=== PATIENT | male | born 1990 | race Caucasian/White ===

== ENCOUNTER → 2016-08-23 08:26 | Outpatient (CLI) | payer BC | END | disposition home or self-care (01) | LOC: D.CT 07-12 08:00 | DX: C62.11 Malignant neoplasm of descended right testis (principal) ==

== ENCOUNTER → 2016-09-01 08:23 | Outpatient (CLI) | payer BC | END | disposition home or self-care (01) | LOC: D.CT 08:23 | DX: I74.5 Embolism and thrombosis of iliac artery (principal) ==

== ENCOUNTER 2018-08-14 10:01 | Emergency (ER) | payer SELFPAY ==
[~2018-08-14] VITALS: Ht 195.6 cm; Wt 100.0 kg
[2018-08-14 10:17] VITALS: Ht 195.6 cm; Wt 100.0 kg
[2018-08-14 11:09] LABS: BASOPHILS 0.2 % (0-2); EOSINOPHILS 0.7 % (0-7); HEMATOCRIT 52.8 % (42.0-54.0); HEMOGLOBIN 17.6 g/dL (13.5-17.5); IMMATURE GRANULOCYTES 0.3 % (0-5); MCH 27.9 pg (26.0-34.0); MCHC 33.3 g/dL (31.0-37.0); MCV 83.8 fL (80.0-100.0); MEAN PLATELET VOLUME 9.7 fL (7.4-10.4); MONOCYTES 8.2 % (2-11); NEUTROPHILS 78.6 % (40-80); PLATELET COUNT 379 10x3/uL (130-400); RDW 14.2 % (11.5-14.5); WBC 17.6 10x3/uL (4.8-10.8)
[2018-08-14 11:18] LABS: INR 1.15 (0.85-1.17); PROTIME 14.2 SECONDS (11.6-15.0)
[2018-08-14 11:21] LABS: ALBUMIN 4.1 g/dL (3.4-5.0); ANION GAP 19.7 mmol/L (8-16); BILIRUBIN - TOTAL 0.77 mg/dL (0.2-1.3); C-REACTIVE PROTEIN 5.9 mg/dL (0.0-0.9); CALCIUM 9.4 mg/dL (8.5-10.1); CREATININE - SERUM 1.3 mg/dL (0.6-1.3); POTASSIUM - SERUM 3.7 mmol/L (3.5-5.1); PROTEIN - SERUM 8.3 g/dL (6.4-8.2)
[2018-08-14 16:45] VITALS: BP 124/86
== END 2018-08-14 16:20 | disposition home or self-care (01) ==
LOC: D.ER 10:01
PROVIDERS: Family Medicine
DX: K56.609 Unspecified intestinal obstruction, unspecified as to partial versus complete obstruction (principal); D72.829 Elevated white blood cell count, unspecified; K43.9 Ventral hernia without obstruction or gangrene

== ENCOUNTER 2018-10-07 17:25 | Emergency (ER) | payer OTHER ==
[~2018-10-07] VITALS: Ht 195.6 cm; Wt 140.7 kg
[2018-10-07 17:52] VITALS: Ht 195.6 cm; Wt 140.7 kg
[2018-10-07 18:27] LABS: BASOPHILS 0.3 % (0-2); EOSINOPHILS 1.1 % (0-7); HEMATOCRIT 47.6 % (42.0-54.0); HEMOGLOBIN 15.6 g/dL (13.5-17.5); IMMATURE GRANULOCYTES 0.2 % (0-5); LYMPHOCYTES 15.1 % (15-50); MCH 27.5 pg (26.0-34.0); MCHC 32.8 g/dL (31.0-37.0); MCV 83.8 fL (80.0-100.0); MEAN PLATELET VOLUME 9.5 fL (7.4-10.4); MONOCYTES 5.8 % (2-11); NEUTROPHILS 77.5 % (40-80); PLATELET COUNT 317 10x3/uL (130-400); RBC 5.68 10x6/uL (4.20-6.10); RDW 14.3 % (11.5-14.5); WBC 10.5 10x3/uL (4.8-10.8)
[2018-10-07 18:33] LABS: APPEARANCE CLEAR (CLEAR); BILIRUBIN NEGATIVE (NEGATIVE); COLOR YELLOW (YELLOW); GLUCOSE NEGATIVE (NEGATIVE); KETONE NEGATIVE (NEGATIVE); NITRITE NEGATIVE (NEGATIVE); PROTEIN NEGATIVE (NEGATIVE); UROBILINOGEN NORMAL (NORMAL)
[2018-10-07 18:43] LABS: ALBUMIN 4.4 g/dL (3.4-5.0); ALKALINE PHOSPHATASE 139 U/L (46-116); ALT (SGPT) 124 U/L (10-68); BILIRUBIN - TOTAL 0.35 mg/dL (0.2-1.3); CALC OSMOLALITY 282 mosm/kg (275-300); CALCIUM 9.3 mg/dL (8.5-10.1); CARBON DIOXIDE 28.2 mmol/L (21.0-32.0); CHLORIDE - SERUM 106 mmol/L (98-107); CREATININE - SERUM 1.2 mg/dL (0.6-1.3); GLUCOSE 94 mg/dL (74-106); POTASSIUM - SERUM 4.3 mmol/L (3.5-5.1); PROTEIN - SERUM 7.5 g/dL (6.4-8.2); SODIUM 143 mmol/L (136-145); UREA NITROGEN 8 mg/dL (7-18); eGFR NON AFRICAN AMERICAN 77 mL/min (90-120)
[2018-10-07 18:45] LABS: AMYLASE - SERUM 41 U/L (25-115); LIPASE 83 U/L (73-393); TROPONIN-I < 0.017 ng/mL (0.000-0.060)
[2018-10-07] MEDS ORDERED: PHENERGAN25 M1 PO (21:09)
[2018-10-07 21:23] VITALS: BP 102/69
== END 2018-10-07 21:23 | disposition home or self-care (01) ==
LOC: D.ER 17:25
PROVIDERS: Family Medicine
DX: K45.8 Other specified abdominal hernia without obstruction or gangrene (principal); Z85.47 Personal history of malignant neoplasm of testis

== ENCOUNTER 2018-10-19 08:34 | Day surgery (SDC) | payer OTHER ==
[~2018-10-19] VITALS: Ht 195.6 cm; Wt 143.2 kg
[~2018-10-19 08:34] MED LIST: PHENERGAN25 M1 PO
[2018-10-19 08:49] LABS: BASOPHILS 0.3 % (0-2); EOSINOPHILS 2.5 % (0-7); HEMATOCRIT 48.1 % (42.0-54.0); HEMOGLOBIN 15.8 g/dL (13.5-17.5); IMMATURE GRANULOCYTES 0.4 % (0-5); LYMPHOCYTES 22.4 % (15-50); MCH 27.3 pg (26.0-34.0); MCHC 32.8 g/dL (31.0-37.0); MCV 83.1 fL (80.0-100.0); MEAN PLATELET VOLUME 9.3 fL (7.4-10.4); MONOCYTES 6.4 % (2-11); PLATELET COUNT 295 10x3/uL (130-400); RBC 5.79 10x6/uL (4.20-6.10); RDW 14.2 % (11.5-14.5)
[2018-10-19 08:59] LABS: CALC OSMOLALITY 277 mosm/kg (275-300); CALCIUM 9.1 mg/dL (8.5-10.1); CHLORIDE - SERUM 103 mmol/L (98-107); CREATININE - SERUM 1.2 mg/dL (0.6-1.3); GLUCOSE 101 mg/dL (74-106); POTASSIUM - SERUM 4.4 mmol/L (3.5-5.1); SODIUM 140 mmol/L (136-145); UREA NITROGEN 11 mg/dL (7-18); eGFR NON AFRICAN AMERICAN 77 mL/min (90-120)
[2018-10-19 09:00] LABS: APTT 31.1 SECONDS (22.8-39.4); INR 1.08 (0.85-1.17); PROTIME 13.5 SECONDS (11.6-15.0)
[2018-10-19 09:16] VITALS: BP 119/78; BMI 37.4
--- NOTE | 2018-10-19 13:58 | NUR ---
SCOPE PATCH BEHIND RT EAR ON ADMIT
[2018-10-19 14:55] VITALS: BP 140/83
[2018-10-19 15:30] VITALS: BP 127/72; Ht 195.6 cm; Wt 143.2 kg
--- NOTE | 2018-10-19 17:57 | NUR ---
SCD'S ON PATIENT. MACHINE TURNED ON AND FUNCTIONING. PATIENT EATING ONLY JELL[employer]IN[employer]. REQUESTS A FAN BECAUSE IS "BURNING UP". TURNED FAN HIGHER AND REMOVED SEVERAL BLANKETS FROM RECOVERY.
[2018-10-19 20:20] VITALS: BP 117/83
[2018-10-20 00:31] VITALS: BP 117/69
[2018-10-20 04:17] VITALS: BP 117/56
[2018-10-20 04:35] LABS: BASOPHILS 0.1 % (0-2); EOSINOPHILS 0.1 % (0-7); HEMATOCRIT 42.6 % (42.0-54.0); HEMOGLOBIN 13.7 g/dL (13.5-17.5); IMMATURE GRANULOCYTES 0.3 % (0-5); LYMPHOCYTES 9.7 % (15-50); MCH 26.8 pg (26.0-34.0); MCHC 32.2 g/dL (31.0-37.0); MCV 83.4 fL (80.0-100.0); MEAN PLATELET VOLUME 9.3 fL (7.4-10.4); MONOCYTES 8.8 % (2-11); PLATELET COUNT 303 10x3/uL (130-400); RBC 5.11 10x6/uL (4.20-6.10)
[2018-10-20 04:54] LABS: WBC 15.8 10x3/uL (4.8-10.8)
[2018-10-20 05:00] LABS: CALC OSMOLALITY 275 mosm/kg (275-300); CALCIUM 7.8 mg/dL (8.5-10.1); CARBON DIOXIDE 24.3 mmol/L (21.0-32.0); CHLORIDE - SERUM 104 mmol/L (98-107); GLUCOSE 113 mg/dL (74-106); POTASSIUM - SERUM 4.1 mmol/L (3.5-5.1); SODIUM 138 mmol/L (136-145); UREA NITROGEN 10 mg/dL (7-18); eGFR NON AFRICAN AMERICAN > 90 mL/min (90-120)
[2018-10-20] MEDS ORDERED: CYCLOBENZAPRINE10 MG PO (09:02)
[2018-10-20] MEDS ORDERED: HYDROCODON-ACE1 EA10 PO (09:02)
[2018-10-20 09:38] VITALS: BP 109/61
--- NOTE | 2018-10-20 11:12 | OP ---
PATIENT NAME: PATRICIA FUNEZ MEDICAL RECORD: [id number] :90 LOCATION:[facility] ADMISSION DATE: SURGEON: EMMANUEL HYLTON MD DATE OF OPERATION: 10/19/2018 PREOPERATIVE DIAGNOSES: 1. Ventral incisional hernia. 2. Peritoneal adhesions. 3. Tobacco dependence syndrome. 4. Morbid obesity. POSTOPERATIVE DIAGNOSES: 1. Ventral incisional hernia. 2. Peritoneal adhesions. 3. Tobacco dependence syndrome. 4. Morbid obesity. PROCEDURE: 1. Lysis of adhesions. 2. Ventral hernia repair with 15 x [address] mesh. SURGEON: Emmanuel Hylton MD REPORT OF PROCEDURE: The patient's abdomen was prepped and draped in sterile fashion. A midline incision was made above the umbilicus. Electrocautery was used to dissect through the subcutaneous tissues. We encountered the largest of the hernia defects and we penetrated the hernia sac and there was noted to be a bowel present within it. This bowel was adherent to the inferior and right side of the hernia sac. We used electrocautery and sharp dissection to take down this bowel from the hernia sac. Once we had this freed up and placed back in the abdominal cavity, then I could feel across the abdominal wall and felt that the patient had multiple hernia defects through the previous midline incision. I went ahead and just extended the incision superiorly and inferiorly. The incision went nearly up to the xiphoid process and all the way down to the superior aspect of the umbilicus. We used electrocautery to come down through all the subcutaneous tissues as we came down to the fascial layer. The patient probably had anywhere from 15-20 total hiatal hernia defects. There was just multiple areas of fascial bridges that were holding the tissue together. I went ahead and just transected all these fascial bridges and opened up into the abdominal cavity. The total length of hernia defect was 16 cm in length at this point. The patient had an extensive amount of adhesions and some evidence of what appeared to be a chronic partial small-bowel obstruction. As we took down these adhesions, which took approximately 30 minutes to perform, we were able to release all of the adhesions of the small bowel. The small bowel was able to be run from the ligament of Treitz to the terminal ileum. There were some fairly dense adhesions present, especially on the posterior aspect of the abdomen from her previous lymph node dissection for history of testicular cancer. We inspected the small bowel carefully and saw no evidence of deserosalizations or full thickness injuries. There was definitely no evidence of any succuss present. We then took down the preperitoneal fat pad from the anterior abdominal wall and took down the falciform ligament and ligated this with 3-0 silk ties. At this point, we had the anterior abdominal wall freed up in all directions. We then performed an undermining of the tissue overlying the anterior fascia using electrocautery. We performed this out laterally and lengthwise on the incision until we had good areas to house our mesh. A 15 x 22 OPERATIVE REPORT [id number] PATRICIA FUNEZ cm Ventralight ST mesh was laid in an underlay fashion and sutured down on all sides using multiple interrupted 0 Prolenes. The mesh appeared to rest in good position. The midline fascia was then reapproximated over top of this mesh using running #1 loop PDS times 2. The wound was irrigated out thoroughly with normal saline. A total of 10 mL of 0.25% Marcaine with epinephrine was infused into the rectus sheath bilaterally. The subcutaneous tissues were then reapproximated with interrupted 3-0 Vicryls and the skin was closed with brenda. COMPLICATIONS: None. CONDITION: Stable. ANESTHESIA: General endotracheal and local. BLOOD LOSS: 50 mL. TRANSINT:[id number] Voice Confirmation ID: [id number] DOCUMENT ID: [id number] EMMANUEL HYLTON MD at 1112 CC: SURI QIU [id number] DICTATION DATE: 10/19/18 1324 RAIL CAR OPERATOR: 10/19/18 1434 [facility] 10/20/18 [id number] [place] [address]
== END 2018-10-20 10:50 | disposition home or self-care (01) ==
LOC: D.MS 08:34 → D.OPS 08:34 → D.MS 14:29 → D.OPS 10-20 10:50
PROVIDERS: Anesthesiology; ATTEND Surgery
DX: K43.2 Incisional hernia without obstruction or gangrene (principal); K66.0 Peritoneal adhesions (postprocedural) (postinfection); F17.200 Nicotine dependence, unspecified, uncomplicated; E66.01 Morbid (severe) obesity due to excess calories; Z01.812 Encounter for preprocedural laboratory examination